=== PATIENT | female | born 1970 | race Caucasian/White ===

== ENCOUNTER 2017-03-03 12:09 | Emergency (ER) | payer OTHER ==
[~2017-03-03] VITALS: Ht 162.6 cm; Wt 93.9 kg
[~2017-03-03 12:09] MED LIST: ATOR20TA PO; BENA40TA PO; METF1000 PO; ORE25 PO
[2017-03-03 12:15] VITALS: BP 168/94
--- NOTE | 2017-03-03 12:33 | NUR ---
Patient ambulated to bed 5. RN evaluating patient at bedside.
--- NOTE | 2017-03-03 12:36 | NUR ---
Dr. Robertson evaluating patient at bedside.
--- NOTE | 2017-03-03 12:37 | NUR ---
46/F BIB WITH C/O 4/10 "THROBBING" INTERMITTENT NONRADIATING LEFT LOWER ABDOMINAL PAIN x 2 WEEKS. PT DENIES N/V/D. PT DENIES ANY TRAUMA OR INJURY. PT DENIES ANY URINARY COMPLAINTS; SKIN IS PINK/WARM/DRY; AOX4 WITH EVEN AND STEADY GAIT; RR ARE EVEN AND UNLABORED; VSS; PATIENT POSITIONED FOR COMFORT; HOB ELEVATED; BED DOWN. ER MD IVY BY BEDSIDE EXAMINING PT. ALL NEEDS MET AT THIS TIME. WILL CONTINUE TO MONITOR
[2017-03-03 13:00] LABS: BASOPHILS # (AUTO) 0.3 K/uL (0.00-0.22); BASOPHILS % (AUTO) 3.4 % (0.0-2.0); EOSINOPHILS # (AUTO) 0.2 K/uL (0-0.4); EOSINOPHILS % (AUTO) 2.2 % (0.0-4.0); HEMOGLOBIN 14.2 g/dL (12.0-16.0); LYMPHOCYTES # (AUTO) 1.5 K/uL (2.5-16.5); LYMPHOCYTES % (AUTO) 19.8 % (20.5-51.1); MEAN CORPUSCULAR HEMOGLOBIN 27 pg (27-31); MEAN CORPUSCULAR HGB CONC 33 g/dL (33-37); MEAN CORPUSCULAR VOLUME 81 fL (80-94); MONOCYTES # (AUTO) 0.6 K/uL (0.8-1.0); NEUTROPHILS # (AUTO) 4.9 K/uL (1.8-7.7); NEUTROPHILS % (AUTO) 66.6 % (42.2-75.2); PLATELET COUNT (AUTO) 309 K/uL (140-450); RED BLOOD CELL COUNT(AUTO) 5.28 MIL/uL (4.20-5.40); RED CELL DISTRIBUTION WIDTH 19.9 % (11.6-13.7); WHITE BLOOD COUNT (AUTO) 7.5 K/uL (4.8-10.8)
--- NOTE | 2017-03-03 13:03 | NUR ---
PT TO CT VIA W/C ACCOMPANIED BY POWER PLANT OPERATOR APPRENTICE
[2017-03-03 13:14] LABS: ANION GAP 13.3 (8-16); CARBON DIOXIDE 28.2 mmol/L (21-32); CREATININE 0.9 mg/dL (0.6-1.3); POTASSIUM 4.5 mmol/L (3.5-5.1)
[2017-03-03 13:20] LABS: TOTAL BILIRUBIN 0.4 mg/dL (0.0-1.0)
--- NOTE | 2017-03-03 13:34 | NUR ---
PT RETURNED FROM CT VIA W/C ACCOMPANIED BY PHYSICIAN ASSISTANT SURGERY; PT TO [facility] WITHOUT INCIDENT
[2017-03-03 14:45] VITALS: BP 169/90
== END 2017-03-03 14:45 | disposition home or self-care (01) ==
LOC: MED 12:09
DX: R10.32 Left lower quadrant pain (principal); E11.9 Type 2 diabetes mellitus without complications; I10 Essential (primary) hypertension; Z98.51 Tubal ligation status
CPT/HCPCS: 36415; 80053; 81002; 81025; 82948; 83690; 85025; 99285